=== PATIENT | female | born 1955 | race Caucasian/White ===

== ENCOUNTER 2016-05-08 13:29 | Inpatient (IN) | payer OTHER ==
[~2016-05-08] VITALS: Ht 154.9 cm; Wt 74.8 kg
[~2016-05-08 13:29] MED LIST: ALPRAZOLAM2 MG PO; ASPIRIN EC81 M1 PO; BACTRIM DS TAB1 EACH PO; CIPRO 500MG TA500 MG PO; CRESTOR10 M1 PO; FISH OIL CONCEN1 SGL PO; HUMALOG100 U/ML SC; KEFLEX500 MG PO; LEVEMIR100 U/ML SC; MACRODANTIN100 MG PO; METHADONE HYDRO10 MG PO; MULTI-DAY VITA1 EACH PO; NOVOLOG FL100 UNIT/1 SC; OXYCODONE HCL30 MG PO; OXYCODONE HYDRO30 MG PO; PERCOCET 325 MG1 TA2 PO; ROBITUSSIN W/CO10 ML PO; SPIRIVA 18 MCG18 MCG INH; SYNTHROID25 MCG PO; TORADOL10 MG PO; TRIAMCINOLONE 0.1 GM TOP; TUDORZA PR400 MCG/Ac INH; VENTOLIN H0.09 MG/Ac INH; VICTOZA 3-0.6 MG/0.1 SC; VIIBRYD20 MG PO; XANAX 0.5MG TA0.5 MG PO
--- NOTE | 2016-05-08 13:36 | NUR ---
PT TO ED WITH DAUGHTER FOR C/O SOB AND COUGH X 3-4 DAYS, PT SENT TO ED BY DR DELGADILLO FOR ? ADMISSION FOR PNA. PT STATES PRODUCTIVE COUGH WITH GREEN SPUTUM. AFEBRILE NOW. PT IS ON 4LNC. PT ALSO ASKING FOR PAIN MANAGEMENT CONSULT.
--- NOTE | 2016-05-08 13:46 | ED DYSPNEA/ASTHMA COMPLAINT ---
History of Present Illness General Chief Complaint: Dyspnea (COPD, CHF, Other) Stated Complaint: SOB Source: patient, family, old records Exam Limitations: no limitations Vital Signs & Intake/Output Vital Signs & Intake/Output Vital Signs Date Time Temp Pulse Resp B/P Pulse O2 O2 Flow FiO2 Ox Delivery Rate 05/08 1805 97.5 97 18 119/69 94 Nasal 3.0L Cannula 05/08 1615 97.5 94 18 125/64 95 Nasal 3.0L Cannula 05/08 1411 97 Nasal 3.0L Cannula 05/08 1351 95 Nasal 3.0L Cannula 05/08 1333 97.1 111 20 107/72 95 Nasal 4.0L Cannula Allergies Coded Allergies: caramiphen (UNKNOWN 10/16/15) chlorpheniramine (UNKNOWN 10/16/15) codeine (UNKNOWN 10/16/15) erythromycin base (UNKNOWN 10/16/15) phenylpropanolamine (UNKNOWN 10/16/15) streptomycin (RASH 10/16/15) Reconcile Medications Albuterol Sulfate (Proair Hfa) 90 MCG HFA.AER.AD 2 PUF INH BID COPD (Reported ) Alprazolam 1 MG TABLET 1 TAB PO TID ANXIETY (Reported) Aspirin (Ecotrin*) 81 MG TABLET.DR 1 TAB PO DAILY HEART/BLOOD (Reported) Escitalopram Oxalate 10 MG TABLET 1 TAB PO DAILY MENTAL HEALTH (Reported) Insulin Aspart, Recombinant (Novolog Flexpen) 100 UNIT/ML INSULN.PEN DM ( Reported) Insulin Detemir (Levemir Flextouch) 100 UNIT/ML (3 ML) INSULN.PEN 80 UNITS SC BID DM (Reported) Levothyroxine Sodium (Synthroid) 25 MCG TABLET 1 TAB PO DAILY THYROID ( Reported) Linaclotide (Linzess) 290 MCG CAPSULE 1 CAP PO DAILY GI (Reported) Liraglutide (Victoza 3-Dung) 0.6 MG/0.1 ML (18 MG/3 ML) PEN.INJCTR 1.8 MG SC QAM DM (Reported) Methadone Hydrochloride (Methadone HCl) 10 MG TABLET 30 MG PO QAM CHRONIC PAIN (Reported) Methadone Hydrochloride (Methadone HCl) 10 MG TABLET 40 MG PO QPM CHRONIC PAIN (Reported) Multivitamin (Multi-Day Vitamins) 1 EACH TABLET 1 TAB PO DAILY SUPPLEMENT ( Reported) Oxycodone HCl 30 MG TABLET 1 TAB PO 4 TIMES/DAY CHRONIC PAIN (Reported) Rosuvastatin Calcium (Crestor) 10 MG TABLET 1 TAB PO DAILY CHOLESTEROL ( Reported) Sulfamethoxazole/Trimethoprim (Bactrim Ds Tablet) 1 EACH TABLET 1 TAB PO BID uti Triage Note: PT TO ED WITH DAUGHTER FOR C/O SOB AND COUGH X 3-4 DAYS, PT SENT TO ED BY DR DELGADILLO FOR ? ADMISSION FOR PNA. PT STATES PRODUCTIVE COUGH WITH GREEN SPUTUM. AFEBRILE NOW. PT IS ON 4LNC. PT ALSO ASKING FOR PAIN MANAGEMENT CONSULT. Triage Nurses Notes Reviewed? yes Onset: Abrupt Duration: day(s): (3-4), constant Timing: recent history Severity: moderate Activities at Onset: activity Prior Episodes/Possible Cause: frequent episodes Modifying Factors: Improves With: rest. Worsens With: movement. Associated Symptoms: cough, weakness HPI: 60 year old female wit history of COPD on 3l o2 baseline, depression, anxiety, diabetes, carcinoid tumor, and brain aneurysm presents emergency room sent in by her primary care physician with her daughter complaining of progressively worsening shortness of breath worse with exertion, cough productive of green sputum for the past 4 days. Patient has needed to go up to 4 L on her oxygen without improvement. She denies any chest pain fevers or chills she is not currently on any prednisone. She's been using her inhalers at home without improvement. She denies any leg swelling abdominal pain nausea vomiting or fever. She smokes intermittently she reports. There are no other modifying factors or associated symptoms. No hemoptysis (VINOD BAPTISTE,MICK) Past History Travel History Traveled to [place] past 21 day No Medical History Any Pertinent Medical History? see below for history Neurological: brain aneurysm sp clip steel and acrylic plate in skull EENT: NONE Cardiovascular: hyperlipidemia Respiratory: COPD, CARCINOID TUMOR sp partial right pneumectomy O2 3-4L Gastrointestinal: NONE Hepatic: NONE Renal: NONE Musculoskeletal: ruptured cervical disc Psychiatric: anxiety, depression Endocrine: diabetes Blood Disorders: NONE History of MRSA: No History of VRE: No History of CDIFF: No Tetanus Vaccine: 05/23/14 Surgical History Surgical History: non-contributory Psychosocial History Who do you live with Family Services at Home None What is your primary language Iraqi Tobacco Use: Current Not Daily ETOH Use: denies use Illicit Drug Use: denies illicit drug use Family History Family History, If Any: FATHER (SMALL CELL CANCER LUNGS ). . Hx Contributory? No (MICK MATOS) Review of Systems Review of Systems Constitutional: Reports: see HPI. All Other Systems: Reviewed and Negative Comments Review of systems: See HPI, All other systems negative. Constitutional, no chills no fever, no malaise HEENT: No visual changes no sore throat no congestion Cardiovascular: No chest pain , no palpitation , Skin, no jaundice no rashes, no change in skin Respiratory: dyspnea cough sputum, no hemoptysis GI: No nausea no vomiting, no diarrhea : No dysuria Muscle skeletal: No joint pain, no joint swelling, no back pain, no neck pain, Neurologic: No numbness no confusion, no headache Psych: No stress . Heme/endocrine: No bruising no bleeding Immunology: No lymphadenopathy, (MICK MATOS) Physical Exam Physical Exam General Appearance: well developed/nourished, alert, awake Respiratory: wheezing Comments: Well-developed well-nourished person in no acute distress HEENT: Normal EENT exam; PERRL, EOMI, no nystagmus. HEAD is atraumatic. moist mucous membranes. Neck: Supple, normal range of motion Back: Nontender, no CVA tenderness. Full range of motion Cardiovascular: Regular rate and rhythms no murmurs rubs Respiratory: Chest nontender.There were no bony deformities, no asymmetry. No respiratory distress. Wheezing bilaterally no rhonchi no rales Abdomen: Soft, nontender nondistended, no appreciable organomegaly. Normal bowel sounds. No rebound/guarding, No appreciable enlargement of the abdominal aorta, No ascites. Extremity: No edema, full range of motion of extremities Neuro: Alert oriented x3, motor sensory normal. There were no obvious focal neurologic abnormalities. Skin: No appreciable rash on exposed skin, skin is warm and dry. Psych: Mood and affect is normal, memory and judgment is normal. Core Measures ACS in differential dx? Yes Severe Sepsis Present: No Septic Shock Present: No (MICK MATOS) Progress Differential Diagnosis: asthma, AMI, bronchitis, costochondritis, CHF, COPD, musculoskeletal pain, pericarditis, pulmonary embolism, pneumonia, pneumothorax, unstable angina Plan of Care: Orders Procedure Date/time Status Consistent Carbohydrate 2 05/09 D Active Regular Diet 05/09 B Active Regular Diet 05/08 D Complete LOWER RESPIRATORY CULTURE 05/08 1811 Active TRC EVALUATION (GEN) 05/08 1801 Active OXYGEN SETUP (GEN) 05/08 1801 Active Pathway - chart 05/08 1801 Active House Staff 05/08 1801 Active Patient Data 05/08 1801 Active Code Status 05/08 1801 Active Intake & Output 05/08 1635 Active Patient Data 05/08 1607 Active Code Status 05/08 1557 Complete Admit to inpatient 05/08 1556 Active Add-on Test (ER Only) 05/08 1552 Active B-TYPE NATRIURETIC PEP (BNP) 05/08 1515 Complete EKG 05/08 1512 Active BLOOD CULTURE 05/08 1432 Active RAPID VIRAL INFLUENZA A 05/08 1354 Complete TROPONIN LEVEL 05/08 1354 Complete COMPREHENSIVE METABOLIC PANEL 05/08 1354 Complete CBC WITHOUT DIFFERENTIAL 05/08 1354 Complete VTE Mechanical Prophylaxis 05/08 UNK Active FingerStick- Glucose 05/08 UNK Active Current Medications Sig/Franky Start time Last Medication Dose Stop Time Status Admin Atorvastatin Calcium 10 MG 1700 05/09 1700 AC (Lipitor) Aspirin Buffered 81 MG DAILY 05/09 1000 AC (Ecotrin) Enoxaparin Sodium 40 MG DAILY 05/09 1000 AC (Lovenox) Escitalopram Oxalate 10 MG DAILY 05/09 1000 AC (Lexapro) Methadone HCl 30 MG QAM 05/09 1000 AC (Dolophine) Multivitamins 1 TAB DAILY 05/09 1000 AC Therapeutic (Theragran-M Vitamins Tabs) Insulin Aspart 0 TIDAC 05/09 0800 AC (NovoLOG) Levothyroxine Sodium 0.025 MG DAILY AC 05/09 0700 AC (Synthroid) Alprazolam 1 MG TID 05/08 2200 AC (Xanax) 05/15 2158 Insulin Detemir 80 UNITS BID 05/08 2199 AC (Levemir) Methadone HCl 40 MG QPM 05/08 2200 AC (Dolophine) Methylprednisolone 40 MG Q8 05/08 220 AC (Solumedrol) Oxycodone HCl 30 MG 4 TIMES/DAY 05/08 2199 AC (Roxicodone) Azithromycin 500 MG 1900 05/08 1900 AC (Zithromax) Dextrose/Water 250 ML (D5W) Albuterol Sulfate 3 ML Q4P PRN 05/08 1830 AC (Proventil) Ipratropium [place] 2.5 ML Q4 HRS NEEDED PRN 05/08 1830 AC (Atrovent) Acetaminophen 650 MG Q6P PRN 05/08 1800 AC (Tylenol) Laboratory Tests 05/08/16 1515: Anion Gap 15, Estimated GFR > 60, BUN/Creatinine Ratio 28.0 H, Glucose 153 H, Calcium 9.2, Total Bilirubin 0.5, AST 49 H, ALT 56 H, Alkaline Phosphatase 146 H, Troponin I < 0.01, Pue-C-Victsueckic Pept 63.8, Total Protein 8.1, Albumin 4.3, Globulin 3.8, Albumin/Globulin Ratio 1.1 05/08/16 1430: CBC w Diff NO MAN DIFF REQ, RBC 4.68, MCV 90.4, MCH 30.3, RDW 14.4, MPV 9.6, Gran % 59.2, Lymphocytes % 33.5, Monocytes % 6.1, Eosinophils % 0.7, Basophils % 0.5, Absolute Granulocytes 5.2, Absolute Lymphocytes 3.0, Absolute Monocytes 0.5 , Absolute Eosinophils 0.1, Absolute Basophils 0, PUBS MCHC 33.5 Microbiology 05/08 1811 LOWER RESP: Respiratory Culture - ORD 05/08 181 LOWER RESP: Gram Stain - ORD 05/08 1515 BLOOD: Blood Culture - RECD 05/08 1455 BLOOD: Blood Culture - RECD Labs ordered old records reviewed patient medicated with Solu-Medrol Rocephin DuoNeb ordered Patient reports mild improvement in her symptoms upon ambulating on 3 L her baseline patient's oxygen saturation dropped from 97% at rest to 88-89% patient became notably dyspneic, declining repeat DuoNeb. Discussed with her plan of care as well as all of her lab results and x-ray findings and need for admission which she is in agreement with Case discussed with Dr. VALENTIN who evaluted the pt and agrees [facility] plan d/w dr murphy will admit (VINOD BAPTISTE,MICK) Diagnostic Imaging: Viewed by Me: Radiology Read. Discussed w/RAD: Radiology Read. Radiology Impression: PATIENT: MERCEDEZ [place] PRESENT AGE: 60 PATIENT ACCOUNT NO: [id number] : 54 LOCATION: [facility] ORDERING PHYSICIAN: MICK BAPTISTE SERVICE DATE: 05/08/16 EXAM TYPE: RAD - XRY- PORTABLE CHEST XRAY EXAMINATION: XR PORTABLE CHEST CLINICAL INFORMATION: Cough and pneumonia. COMPARISON: 10/16/2015. TECHNIQUE: Portable AP view of the chest was obtained. FINDINGS: Once again seen are postsurgical changes of the right hemithorax with an elevated hemidiaphragm and rib deformity. Heart size is normal and there is no evidence of CHF. No infiltrates, effusions or lung masses are seen. There has been no interval change since the previous study IMPRESSION: No acute intrathoracic disease. DICTATED BY: MYAH BALDERAS MD DATE/TIME DICTATED:05/08/161426 INVESTIGATIONS CONSULTANT:VIVIANE DATE/TIME TRANSCRIBED:1426 CONFIDENTIAL, DO NOT COPY WITHOUT APPROPRIATE AUTHORIZATION. < Electronically signed in Other Vendor System> SIGNED BY: MYAH BALDERAS MD 05/08/16 1436 Initial ED EKG: normal sinus at 70, no acute ST segment changes normal axis Prior EKG: unchanged (01/2016) Rhythm Strip: normal sinus rhythm (MICK MATOS) Departure Departure Time of Disposition: 1557 Disposition: STILL A PATIENT Condition: Stable Clinical Impression Primary Impression: COPD exacerbation Referrals: RASHEED DELGADILLO MD (PCP/Family) Departure Forms: Customer Survey General Discharge Information Admission Note Spoke With: BHANU MURPHY MD Documentation of Exam: Documentation of any treatments & extenuating circumstances including Concerns Regarding Discharge (functional status, medication knowledge or non-compliance, living conditions, etc.) that warrant an admission rather than observation: Patient will require IV antibiotics IV steroids pulmonology and pain management consult premature discharge would BE medically harmful given her oxygen saturations dropped into the 80s on 3 L with ambulation (MICK MATOS) PA/COLD ROLL OPERATOR Co-Sign Statement Statement: ED Attending supervision documentation- [x] I saw and evaluated the patient. I have also reviewed all the pertinent lab results and diagnostic results. I agree with the findings and the plan of care as documented in the PA's/COLD ROLL OPERATOR's documentation. [] I have reviewed the ED Record and agree with the PA's/COLD ROLL OPERATOR's documentation. [] Additions or exceptions (if any) to the PAs/COLD ROLL OPERATOR's note and plan are summarized below: [] (REINALDO VALENTIN DO) Critical Care Note Critical Care Note Critical Care Time: non-applicable (VINOD BAPTISTEMICK)
--- NOTE | 2016-05-08 13:51 | NUR ---
PT TO ROOM16 BY WHEELCHAIR, CHANGED INTO HOSPITAL GOWN, PLACED ON TRANSCRIPTION TYPIST, PLACED ON O2 3L NC O2SAT 97% EMILE BROCK AT BEDSIDE FOR PT EVAL.
--- NOTE | 2016-05-08 14:09 | NUR ---
RESP AT BEDSIDE FOR DUONEB.
--- NOTE | 2016-05-08 14:36 | RADIOLOGY REPORT ---
EXAMINATION: XR PORTABLE CHEST CLINICAL INFORMATION: Cough and pneumonia. COMPARISON: 10/16/2015. TECHNIQUE: Portable AP view of the chest was obtained. FINDINGS: Once again seen are postsurgical changes of the right hemithorax with an elevated hemidiaphragm and rib deformity. Heart size is normal and there is no evidence of CHF. No infiltrates, effusions or lung masses are seen. There has been no interval change since the previous study IMPRESSION: No acute intrathoracic disease.
--- NOTE | 2016-05-08 14:38 | NUR ---
IV EST, PT MEIDDCATED WITH SOLUMEDROL PER EMAR. BLOOD DRAWN AND SENT TO LAB-SST,LAV,BL[facility].
[2016-05-08 14:39] LABS: ABSOLUTE BASOPHIL COUNT 0 /CUMM (0.0-0.2); ABSOLUTE EOSINOPHIL COUNT 0.1 /CUMM (0.0-0.7); ABSOLUTE GRANULOCYTE CT 5.2 /CUMM (1.4-6.5); ABSOLUTE MONOCYTE COUNT 0.5 /CUMM (0.10-0.60); BASOPHIL % 0.5 % (0.0-2.0); EOSINOPHIL % 0.7 % (0-5); GRANULOCYTE % 59.2 % (42.2-75.2); HEMATOCRIT 42.3 % (37-47); MEAN CORPUSCULAR HGB 30.3 PG (27.0-31.0); MEAN CORPUSCULAR HGB CONC 33.5 G/DL (33.0-37.0); MEAN CORPUSCULAR VOLUME 90.4 FL (81.0-99.0); MEAN PLATELET VOLUME 9.6 FL (7.4-10.4); RBC DISTRIBUTION WIDTH 14.4 % (11.5-14.5); RED BLOOD CELL CT 4.68 /CUMM (4.20-5.40); WHITE BLOOD CELL COUNT 8.9 /CUMM (4.8-10.8)
--- NOTE | 2016-05-08 14:49 | NUR ---
FLU SWAB OBTAINED AND SENT TO LAB.
--- NOTE | 2016-05-08 15:01 | NUR ---
MIKE FROM LAB CALLED NEED REDRAW OF SST.
--- NOTE | 2016-05-08 15:05 | NUR ---
REDRAwn on sst
--- NOTE | 2016-05-08 15:14 | NUR ---
PT BLOOD SENT TO THE LAB SST REDRAWN
[2016-05-08] MEDS ORDERED: PROAIR HFA8.5 GM INH (15:40)
--- NOTE | 2016-05-08 15:40 | NUR ---
PT AMBULATED ON O2 3L NC WITH O2SAT 89%, HR 112. EMILE BROCK MADE AWARE.
[2016-05-08] MEDS ORDERED: ALPRAZOLAM1 M2 PO (15:41)
[2016-05-08] MEDS ORDERED: METHADONE HCL10 M1 PO ×2 (15:43→15:44)
[2016-05-08] MEDS ORDERED: LEVEMIR FL100 UNIT/1 SC (15:43)
[2016-05-08] MEDS ORDERED: OXYCODONE HCL30 M1 PO (15:44)
[2016-05-08] MEDS ORDERED: ESCITALOPRAM OX10 MG PO (15:45)
[2016-05-08] MEDS ORDERED: LINZESS290 MC1 PO (15:45)
--- NOTE | 2016-05-08 16:17 | NUR ---
PT OFFERING NO COMPLAINTS AT THIS TIME.VSS. FOOD TRAY ORDERED.
--- NOTE | 2016-05-08 17:46 | NUR ---
PT HAS BED ASSIGNMENT 235-1
--- NOTE | 2016-05-08 17:47 | NUR ---
FOOD TRAY PROVIDED TO PT.
--- NOTE | 2016-05-08 18:07 | History & Physical ---
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 Patient also reports chest congestion, wheezing and mild nausea. He denies fever, chills, chest pain or discomfort, vomiting, abdominal pain, any change in bowel or urinary habits, leg swelling, sick contacts around her. She lives with her daughter and her boyfriend. She has poor mobility because of back pain. She has a long smoking history. Has been smoking for last 27 years. Trying to quit right now. Still smokes 2 cigarettes per week. Used to smoke one and half pack per day. Denies drinking alcohol or use of illicit drugs. Allergies/Medications Allergies: Coded Allergies: caramiphen (UNKNOWN 10/16/15) chlorpheniramine (UNKNOWN 10/16/15) codeine (UNKNOWN 10/16/15) erythromycin base (UNKNOWN 10/16/15) phenylpropanolamine (UNKNOWN 10/16/15) streptomycin (RASH 10/16/15) Home Med list Albuterol Sulfate (Proair Hfa) 90 MCG HFA.AER.AD 2 PUF INH BID COPD (Reported ) Alprazolam 1 MG TABLET 1 TAB PO TID ANXIETY (Reported) Aspirin (Ecotrin*) 81 MG TABLET.DR 1 TAB PO DAILY HEART/BLOOD (Reported) Escitalopram Oxalate 10 MG TABLET 1 TAB PO DAILY MENTAL HEALTH (Reported) Insulin Aspart, Recombinant (Novolog Flexpen) 100 UNIT/ML INSULN.PEN DM ( Reported) Insulin Detemir (Levemir Flextouch) 100 UNIT/ML (3 ML) INSULN.PEN 80 UNITS SC BID DM (Reported) Levothyroxine Sodium (Synthroid) 25 MCG TABLET 1 TAB PO DAILY THYROID ( Reported) Linaclotide (Linzess) 290 MCG CAPSULE 1 CAP PO DAILY GI (Reported) Liraglutide (Victoza 3-Dung) 0.6 MG/0.1 ML (18 MG/3 ML) PEN.INJCTR 1.8 MG SC QAM DM (Reported) Methadone Hydrochloride (Methadone HCl) 10 MG TABLET 30 MG PO QAM CHRONIC PAIN (Reported) Methadone Hydrochloride (Methadone HCl) 10 MG TABLET 40 MG PO QPM CHRONIC PAIN (Reported) Multivitamin (Multi-Day Vitamins) 1 EACH TABLET 1 TAB PO DAILY SUPPLEMENT ( Reported) Oxycodone HCl 30 MG TABLET 1 TAB PO 4 TIMES/DAY CHRONIC PAIN (Reported) Rosuvastatin Calcium (Crestor) 10 MG TABLET 1 TAB PO DAILY CHOLESTEROL ( Reported) Sulfamethoxazole/Trimethoprim (Bactrim Ds Tablet) 1 EACH TABLET 1 TAB PO BID uti Past History Travel History Traveled to [place] past 21 day No Medical History Neurological: brain aneurysm sp clip steel and acrylic plate in skull EENT: NONE Cardiovascular: hyperlipidemia Respiratory: COPD, CARCINOID TUMOR sp partial right pneumectomy O2 3-4L Gastrointestinal: NONE Hepatic: NONE Renal: NONE Musculoskeletal: ruptured cervical disc Psychiatric: anxiety, depression Endocrine: diabetes Blood Disorders: NONE History of MRSA: No History of VRE: No History of CDIFF: No Tetanus Vaccine: 05/23/14 Surgical History Surgical History: non-contributory Past Family/Social History Family History Relations & Conditions if any FATHER (SMALL CELL CANCER LUNGS ). . Psychosocial History Services at Home: None ETOH Use: denies use Illicit Drug Use: denies illicit drug use Review of Systems Review of Systems Constitutional: Reports: see HPI. Exam & Diagnostic Data Last 24 Hrs of Vital Signs/I&O Vital Signs Date Time Temp Pulse Resp B/P Pulse O2 O2 Flow FiO2 Ox Delivery Rate 05/08 1805 97.5 97 18 119/69 94 Nasal 3.0L Cannula 05/08 1615 97.5 94 18 125/64 95 Nasal 3.0L Cannula 05/08 1411 97 Nasal 3.0L Cannula 05/08 1351 95 Nasal 3.0L Cannula 05/08 1333 97.1 111 20 107/72 95 Nasal 4.0L Cannula Intake & Output 05/08 1600 05/08 0800 05/08 0000 Intake Total Output Total Balance Patient 165 lb Weight Physical Exam General Appearance Alert, Oriented X3, Cooperative, No Acute Distress Skin 2 SMALL SCARS ON THE LEFT SIDE OF HER BACK IN 1 BIG SCAR ON RIGHT SIDE OF HER BACK Neck Supple, No JVD, HORIZONTAL SCAR ON HER NECK Cardiovascular TACHYCARDIA Lungs Clear to Auscultation, DECREASED AIR ENTRY ON RIGHT SIDE Abdomen Normal Bowel Sounds, Soft, No Tenderness Neurological Normal Speech, Strength at 5/5 X4 Ext, Sensation Intact, Cranial Nerves 3-12 NL Extremities No Edema Last 24 Hrs of Labs/Jaspreet: Laboratory Tests 05/08/16 1515: Anion Gap 15, Estimated GFR > 60, BUN/Creatinine Ratio 28.0 H, Glucose 153 H, Calcium 9.2, Total Bilirubin 0.5, AST 49 H, ALT 56 H, Alkaline Phosphatase 146 H, Troponin I < 0.01, Tfx-Q-Ctyhmsoaixx Pept 63.8, Total Protein 8.1, Albumin 4.3, Globulin 3.8, Albumin/Globulin Ratio 1.1 05/08/16 1430: CBC w Diff NO MAN DIFF REQ, RBC 4.68, MCV 90.4, MCH 30.3, RDW 14.4, MPV 9.6, Gran % 59.2, Lymphocytes % 33.5, Monocytes % 6.1, Eosinophils % 0.7, Basophils % 0.5, Absolute Granulocytes 5.2, Absolute Lymphocytes 3.0, Absolute Monocytes 0.5 , Absolute Eosinophils 0.1, Absolute Basophils 0, PUBS MCHC 33.5 Microbiology 05/08 1811 LOWER RESP: Respiratory Culture - ORD 05/08 181 LOWER RESP: Gram Stain - ORD 05/08 1515 BLOOD: Blood Culture - RECD 05/08 1455 BLOOD: Blood Culture - RECD Diagnostic Data EKG Results Normal sinus rhythm with heart rate [address]-T wave changes QTc interval 469 CXR Results Postsurgical changes. 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 Acute on chronic hypoxic respiratory failure secondary to COPD exacerbation. Patient desaturated up to 88-89% on ambulation while on 3 L 2. History of diabetes 3. History of hypothyroidism 4. History of chronic pain syndrome. Patient is on oxycodone and methadone. 5. History of kidney stones and UTI. Patient is on Bactrim for last 7-8 months 6. Transaminitis with elevated alkaline phosphatase. Most likely secondary to side effects of pain medications. Could be due to NAFLD 7. History of hypercholesterolemia 8. History of depression/anxiety 9. History of kidney stones and UTI. Patient is on Bactrim for last 7-8 months Plan Vitals every shift. Continue TRC nebs. Continue supplemental oxygen and keep oxygen saturation more than 92%. We will continue IV steroids. Will start patient on IV azithromycin. Blood cultures and sputum cultures. We will continue on her home medications including pain medications and Bactrim. Accu- Cheks before each meal and at bedtime. Monitor LFTs. Subcutaneous Lovenox for DVT prophylaxis. Pain management pathway. Consistent Carbohydrate diet. Full code. Outpatient referral to pain clinic after discharge for pain management. As Ranked By This Provider Problem List: 1. COPD exacerbation Core Measures/Miscellaneous Acute Coronary Syndrome ACS Diagnosis: No Cerebrovascular Accident CVA/TIA Diagnosis: No Congestive Heart Failure CHF Diagnosis: No Venous Thromboembolism VTE Risk Factors: Acute medical illness, Age > 40 VTE Prophylaxis Ordered Inpt: [facility] d/t: No contraindications No VTE Pharm Prophylaxis d/t: No contraindications VTE Diagnosis: No VTE Type: NONE VTE Confirmed by (Test): NONE Severe Sepsis Severe Sepsis Present: No Septic Shock Septic Shock Present: No Miscellaneous Documentation Attending Case Discussed With: BHANU MURPHY MD Primary Care Physician: RASHEED DELGADILLO MD Patient sees these Specialists Heri Thakur MD Level of Patient Care: General Medicine BHANU MURPHY MD 05/09/16 1234: Attending MD Review Statement Attending Statement Attending MD Statement: examined this patient, discuss w/resident/PA/SOLAR PROJECT MANAGER, agreed w/resident/PA/SOLAR PROJECT MANAGER, reviewed EMR data (avail) Attending Assessment/Plan: 60F PMH COPD on 3L home oxygen here with persistent worsening SOB not being helped by home inhalers, wheezing on exam, will be treated for COPD exacerbation with Solumedrol and nebulizer treatments.
--- NOTE | 2016-05-08 19:43 | NUR ---
AWAITING CALL FROM FLOOR RN FOR REPORT. ZITHROMYCIN IV INFUSING AT 250ML/HR. FINGER STICK 370. MOD PAGED. NOVOLG 8 UNTIS (SLIDING SCALE) SC ADMINISTERED PER MOD ORDER. VITAL SIGNS STABLE.
--- NOTE | 2016-05-08 20:07 | NUR ---
REPORT CALLED. DISTRIBUTION (LEFT MESSAGE ON ANSWERING MACHINE)
[2016-05-08 21:35] VITALS: BP 104/64
--- NOTE | 2016-05-08 23:00 | NUR ---
PT RECEIVED FROM ER AROUND 2100. A/O X2. CONFUSED AT TIMES. VSS ON 3L O2 NC. PT ON METHADONE FOR BACK PAIN. ALPS IN PLACE. BEDALARM INITIATED. SKIN INT. TRACE EDEMA TO SLICK FEET NOTED. BLE ELEVATED. SAFETY MAINTAINED. WILL MONITOR.
[2016-05-09 05:36] VITALS: BP 110/60
--- NOTE | 2016-05-09 07:59 | PN- Housestaff ---
CAREY ORTIZ 05/09/16 0759: Subjective Follow-up For: Acute on chronic hypoxic respiratory failure Subjective: The patient comfortable this morning. Did not have any complaints. Vitals remain stable overnight. remained afebrile. Stated that she takes methadone, which is prescribed by her primary care provider. Reached out to Dr. Sanches to confirm the dose. Await reply. Review of Systems Constitutional: Reports: see HPI. Objective Last 24 Hrs of Vital Signs/I&O Vital Signs Date Time Temp Pulse Resp B/P Pulse O2 O2 Flow FiO2 Ox Delivery Rate 05/09 0536 97.7 104 20 110/60 94 Nasal 3.0L Cannula 05/08 2200 Nasal 3.0L Cannula 05/08 2135 97.5 101 20 104/64 93 05/08 1945 97.6 96 18 117/63 95 Nasal 3.0L Cannula 05/08 1805 97.5 97 18 119/69 94 Nasal 3.0L Cannula 05/08 1615 97.5 94 18 125/64 95 Nasal 3.0L Cannula 05/08 1411 97 Nasal 3.0L Cannula 05/08 1351 95 Nasal 3.0L Cannula 05/08 1333 97.1 111 20 107/72 95 Nasal 4.0L Cannula Intake & Output 05/09 0800 05/09 0000 05/08 1600 Intake Total 100 550 Output Total Balance 100 550 Intake, IV 200 Intake, Oral 100 350 Patient 165 lb 165 lb Weight Physical Exam General Appearance: No Acute Distress Other Physical Findings: General Exam: AAOx3, No acute distress, Skin: No rashes, no breakdown HEENT: PERRLA, EOMI Neck: Supple, No JVD No cervical lymphadenopathy CVS: Reg Rate, Normal S1,S2, No MGR Resp: Low air entry bilaterally, rhonchi/rales positive bilaterally., Abdomen: Soft, No tenderness, Normal Bowel Sounds Neuro: Normal Speech, Strength 5/5 b/l x 4 extremities, Sensation intact, CN III -XII NL, Reflexes 2+ Extremities: No cyanosis, No pedal edema Current Medications: Current Medications Sig/Franky Start time Last Medication Dose Route Stop Time Status Admin Acetaminophen 650 MG Q6P PRN 05/08 1800 AC PO Albuterol Sulfate 3 ML Q4P PRN 05/08 1830 AC INH Albuterol Sulfate 3 ML ONCE ONE 05/08 1400 DC 05/08 INH 05/08 1401 1411 Alprazolam 1 MG TID 05/08 2200 AC 05/08 PO 05/15 2159 2113 Aspirin Buffered 81 MG DAILY 05/09 1000 AC PO Atorvastatin Calcium 10 MG 1700 05/09 1700 AC PO Azithromycin 500 MG 1900 05/08 1900 AC 05/08 Dextrose/Water 250 ML IV 1938 Ceftriaxone Sodium 0 .STK-MED ONE 05/08 1435 DC .ROUTE Ceftriaxone Sodium 1,000 MG ONCE ONE 05/08 1400 DC 05/08 IV 05/08 1401 1515 Enoxaparin Sodium 40 MG DAILY 05/09 1000 AC SC Escitalopram Oxalate 10 MG DAILY 05/09 1000 AC PO Influenza Virus 0.5 ML 1000 05/09 1000 AC Vaccine IM 05/09 1001 Insulin Aspart 0 TIDAC 05/09 0800 DC 05/08 SC 1938 Insulin Aspart 6 UNITS ONCE ONE 05/08 2145 DC 05/08 SC 05/08 2146 2217 Insulin Aspart 0 TIDAC/HS 05/08 2115 AC SC Insulin Detemir 80 UNITS BID 05/08 2200 AC 05/08 SC 2118 Ipratropium [place] 2.5 ML Q4 HRS NEEDED PRN 05/08 1830 AC INH Ipratropium [place] 2.5 ML ONCE ONE 05/08 1400 DC 05/08 INH 05/08 1401 1411 Levothyroxine Sodium 0.025 MG DAILY AC 05/09 0700 AC 05/09 PO 0604 Methadone HCl 30 MG QAM 05/09 1000 AC PO Methadone HCl 40 MG QPM 05/08 2200 AC 05/08 PO 2114 Methylprednisolone 40 MG Q8 05/08 2200 AC 05/09 IV 0604 Methylprednisolone 0 .STK-MED ONE 05/08 1435 DC .ROUTE Methylprednisolone 125 MG ONCE ONE 05/08 1400 DC 05/08 IV 05/08 1401 1438 Multivitamins 1 TAB DAILY 05/09 1000 AC Therapeutic PO Oxycodone HCl 30 MG 4 TIMES/DAY 05/08 2200 AC 05/08 PO 2219 Trimethoprim/ 1 TAB BID 05/08 2200 AC 05/08 Sulfamethoxazole PO 2323 Last 24 Hrs of Lab/Jaspreet Results Last 24 Hrs of Labs/Mics: Laboratory Tests 05/09/16 0620: Sodium Pending, Potassium Pending, Chloride Pending, Carbon Dioxide Pending, Anion Gap Pending, BUN Pending, Creatinine Pending, BUN/Creatinine Ratio Pending , Total Bilirubin Pending, Direct Bilirubin Pending, AST Pending, ALT Pending, Alkaline Phosphatase Pending, Total Protein Pending, Albumin Pending 05/08/16 1515: Anion Gap 15, Estimated GFR > 60, BUN/Creatinine Ratio 28.0 H, Glucose 153 H, Calcium 9.2, Total Bilirubin 0.5, AST 49 H, ALT 56 H, Alkaline Phosphatase 146 H, Troponin I < 0.01, Rou-X-Atgbanjegqo Pept 63.8, Total Protein 8.1, Albumin 4.3, Globulin 3.8, Albumin/Globulin Ratio 1.1 05/08/16 1430: CBC w Diff NO MAN DIFF REQ, RBC 4.68, MCV 90.4, MCH 30.3, RDW 14.4, MPV 9.6, Gran % 59.2, Lymphocytes % 33.5, Monocytes % 6.1, Eosinophils % 0.7, Basophils % 0.5, Absolute Granulocytes 5.2, Absolute Lymphocytes 3.0, Absolute Monocytes 0.5 , Absolute Eosinophils 0.1, Absolute Basophils 0, PUBS MCHC 33.5 Microbiology 05/08 181 LOWER RESP: Respiratory Culture - COLB 05/08 181 LOWER RESP: Gram Stain - COLB 05/08 1515 BLOOD: Blood Culture - RECD 05/08 1455 BLOOD: Blood Culture - RECD Assessment/Plan Assessment: She is an older lady with a history of diabetes, lung carcinoid tumor status post resection, COPD (3.5 L oxygen) is being evaluated for shortness of breath, cough. [id number] smoking history. At the time of admission, vitals-temperature 97.1, pulse rate 111, respiration 20, blood pressure 107/72, pulse ox 95% nasal cannula 4 L. Lab findings indicated WBC 8.9, hemoglobin 14.2, platelets were not checked. Electrolytes- sodium 138, potassium 3.8, bicarbonate 27, normal renal function-BUN 14, serum creatinine 0.5. Cure function tests-history 49, he has difficulty 6, alkaline phosphatase 146. Radiological findings-chest x-ray revealed no acute abnormalities. Blood cultures 2-negative so far. Differential diagnosis: #1 COPD exacerbation (acute hypoxic respiratory failure) . Below is the problem list and plan: #1 shortness of breath-acute hypoxic respiratory failure. As per the notes, the patient had oxygen saturation-88% on 3 L. Continue total respiratory care- nebulization. Continue IV azithromycin. IV Solu-Medrol has been changed from 40 mg every 8 to every 12. The respiratory cultures recently. #2 diabetes-HbA1c pending. Blood sugars inadequately controlled, with 80 units of Levemir. Consider increasing the dose of Levemir at this time. Continue to monitor blood glucose closely. A separate sliding scale needs to be written along with a bedtime scale for regular insulin. Continue to monitor blood glucose for the next 24 hours, and reevaluate in the a.m. #3 pain management-currently on methadone 30 mg every morning and 40 mg every afternoon. Also on oxycodone 30 mg 4 times a day, which is counterproductive. Reached out to the primary care physician for confirmation of the diagnosis. As per the family, oxycodone has been made when necessary. #4 unit tract infection-she takes prophylactic antibiotics-Bactrim. Need to review records from primary care physician. #5 DVT prophylaxis-Lovenox. Problem List: 1. COPD exacerbation 2. Bronchitis Pain Ratin Pain Location: Back Pain Goal: Pain 4 or less Pain Plan: Oxycodone Tomorrow's Labs & Rationales: Basic electrode lead panel-the patient was hyponatremic, and need to monitor closely. EMMA NUGENT,[facility] 05/09/16 1154: Attending MD Review Statement Attending Statement Attending MD Statement: examined this patient, discuss w/resident/PA/OFFICE MACHINES SALES REPRESENTATIVE, agreed w/resident/PA/OFFICE MACHINES SALES REPRESENTATIVE, reviewed EMR data (avail), discussed with nursing, discussed with case mgmt, reviewed images, amended to note Attending Assessment/Plan: Patient seen and examined, claims that she's feeling very tired. Breathing has improved some. Vital Signs Date Time Temp Pulse Resp B/P Pulse O2 O2 Flow FiO2 Ox Delivery Rate 05/09 1146 95 Nasal 3.0L Cannula 05/09 0536 97.7 104 20 110/60 94 Nasal 3.0L Cannula 05/080 Nasal 3.0L Cannula 05/085 97.5 101 20 104/64 93 05/08 1945 97.6 96 18 117/63 95 Nasal 3.0L Cannula 05/08 1805 97.5 97 18 119/69 94 Nasal 3.0L Cannula 05/08 1615 97.5 94 18 125/64 95 Nasal 3.0L Cannula 05/08 1411 97 Nasal 3.0L Cannula 05/08 1351 95 Nasal 3.0L Cannula 05/08 1333 97.1 111 20 107/72 95 Nasal 4.0L Cannula on exam; aox3, nad. cv; s1,s2, rrr. resp; clear but decreased breath sounds overall. abd; soft, nt, bs+ ext; no edema Laboratory Tests 05/09 05/08 05/08 0620 1515 1430 Chemistry Sodium (137 - 145 mmol/L) 135 L 138 Potassium (3.5 - 5.1 mmol/L) 4.6 3.8 Chloride (98 - 107 mmol/L) 95 L 96 L Carbon Dioxide (22 - 30 mmol/L) 30 27 Anion Gap (5 - 16) 11 15 BUN (7 - 17 mg/dL) 14 14 Creatinine (0.5 - 1.0 mg/dL) 0.6 0.5 Estimated GFR (>60 ml/min) > 60 > 60 BUN/Creatinine Ratio (7 - 25 %) 23.3 28.0 H Glucose (65 - 99 mg/dL) 153 H Calcium (8.4 - 10.2 mg/dL) 9.2 Total Bilirubin (0.2 - 1.3 mg/dL) 0.4 0.5 Direct Bilirubin (< 0.4 mg/dL) 0.4 AST (14 - 36 U/L) 39 H 49 H ALT (9 - 52 U/L) 55 H 56 H Alkaline Phosphatase (<127 U/L) 126 146 H Troponin I (< 0.11 ng/ml) < 0.01 [id number]-Celhiqfwqvd Pept (<125 pg/mL) 63.8 Total Protein (6.3 - 8.2 g/dL) 7.3 8.1 Albumin (3.5 - 5.0 g/dL) 3.9 4.3 Globulin (1.9 - 4.2 gm/dL) 3.8 Albumin/Globulin Ratio (1.1 - 2.2 %) 1.1 Hematology CBC w Diff NO MAN DIFF REQ WBC (4.8 - 10.8 /CUMM) 8.9 RBC (4.20 - 5.40 /CUMM) 4.68 Hgb (12.0 - 16.0 G/DL) 14.2 Hct (37 - 47 %) 42.3 MCV (81.0 - 99.0 FL) 90.4 MCH (27.0 - 31.0 PG) 30.3 RDW (11.5 - 14.5 %) 14.4 Plt Count (/CUMM) MPV (7.4 - 10.4 FL) 9.6 Gran % (42.2 - 75.2 %) 59.2 Lymphocytes % (20.5 - 51.1 %) 33.5 Monocytes % (1.7 - 9.3 %) 6.1 Eosinophils % (0 - 5 %) 0.7 Basophils % (0.0 - 2.0 %) 0.5 Absolute Granulocytes (1.4 - 6.5 /CUMM) 5.2 Absolute Lymphocytes (1.2 - 3.4 /CUMM) 3.0 Absolute Monocytes (0.10 - 0.60 /CUMM) 0.5 Absolute Eosinophils (0.0 - 0.7 /CUMM) 0.1 Absolute Basophils (0.0 - 0.2 /CUMM) 0 PUBS MCHC (33.0 - 37.0 G/DL) 33.5 A/p: 60 y/o F with pmh sig for diabetes mellitus, ch resp failure, lung carcinoid tumor status post partial right pneumonectomy, COPD on 3 L of oxygen at home, 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 Patient is methadone dependent and asking for pain management referral. Improving, please decrease the steroids to twice a day dosing. Would continue the IV azithromycin and follow-up on cultures. Continue inhalers and TRC nebs. Patient will be given referral for the pain management. Continue all other current medications. Please ambulate patient with some assistance. DVT prophylaxis: Lovenox. If continues to improve, possible discharge tomorrow.
[2016-05-09 14:33] VITALS: BP 118/72
[2016-05-09 23:00] VITALS: BP 106/72
--- NOTE | 2016-05-10 05:51 | PN- Housestaff ---
CAREY ORTIZ 05/10/16 0550: Subjective Follow-up For: - Diabetes - COPD Subjective: She was comfortable this morning. Breathing improved. Vitals were stable. He remained afebrile. Review of Systems Constitutional: Reports: see HPI. Objective Last 24 Hrs of Vital Signs/I&O Vital Signs Date Time Temp Pulse Resp B/P Pulse O2 O2 Flow FiO2 Ox Delivery Rate 05/10 0000 Nasal 3.0L Cannula 05/09 2308 91 Nasal 3.0L Cannula 05/09 2300 97.8 90 20 106/72 86 Nasal 3.0L Cannula 05/09 1835 99 Nasal 3.0L Cannula 05/09 1433 99.0 112 19 118/72 91 05/09 1151 Nasal 3.0L Cannula 05/09 1146 95 Nasal 3.0L Cannula 05/09 0800 Nasal 3.0L Cannula Intake & Output 05/10 0800 05/10 0000 05/09 1600 Intake Total 250 800 Output Total 200 2 Balance 50 798 Intake, Oral 250 800 Output, Urine 200 2 Physical Exam General Appearance: No Acute Distress Other Physical Findings: General Exam: AAOx3, No acute distress, Skin: No rashes, no breakdown HEENT: PERRLA, EOMI Neck: Supple, No JVD No cervical lymphadenopathy CVS: Reg Rate, Normal S1,S2, No MGR Resp:Decreased air entry, ronchi/rales b/l Abdomen: Soft, No tenderness, Normal Bowel Sounds Neuro: Normal Speech, Strength 5/5 b/l x 4 extremities, Sensation intact, CN III -XII NL, Reflexes 2+ Extremities: No cyanosis, pedal edema Current Medications: Current Medications Sig/Franky Start time Last Medication Dose Route Stop Time Status Admin Acetaminophen 650 MG Q6P PRN 05/08 1800 AC PO Albuterol Sulfate 3 ML BID 05/09 220 AC 05/09 INH 1835 Albuterol Sulfate 3 ML Q4P PRN 05/08 183 DC INH Alprazolam 1 MG TID 05/08 2199 AC 05/09 PO 05/15 2158 2140 Aspirin Buffered 81 MG DAILY 05/09 1000 AC 05/09 PO 1141 Atorvastatin Calcium 10 MG 1700 05/09 1700 DC PO Atorvastatin Calcium 10 MG 1700 05/09 1700 AC 05/09 PO 1707 Azithromycin 500 MG 19005/08 1900 AC 05/09 Dextrose/Water 250 ML IV 1708 Enoxaparin Sodium 40 MG DAILY 05/09 1000 AC 05/09 SC 1019 Escitalopram Oxalate 10 MG DAILY 05/09 1000 AC 05/09 PO 1141 Influenza Virus 0.5 ML 1000 05/09 1000 DC Vaccine IM 05/09 1001 Insulin Aspart 0 TIDAC 05/09 0800 DC 05/08 SC 1938 Insulin Aspart 0 TIDAC/HS 05/08 2115 AC 05/09 SC 2141 Insulin Detemir 85 UNITS BID 05/09 2200 AC 05/09 SC 2142 Insulin Detemir 80 UNITS BID 05/08 2200 DC 05/09 SC 0853 Ipratropium [place] 2.5 ML BID 05/09 2200 AC 05/09 INH 1137 Ipratropium [place] 2.5 ML Q4 HRS NEEDED PRN 05/08 1830 DC INH Levothyroxine Sodium 0.025 MG DAILY AC 05/09 0700 AC 05/09 PO 0604 Methadone HCl 30 MG QAM 05/09 1000 AC 05/09 PO 1017 Methadone HCl 40 MG QPM 05/08 2200 AC 05/09 PO 2141 Methylprednisolone 40 MG BID 05/09 2200 AC 05/09 IV 2142 Methylprednisolone 40 MG Q8 05/08 2200 DC 05/09 IV 0604 Multivitamins 1 TAB DAILY 05/09 1000 AC 05/09 Therapeutic PO 1141 Oxycodone HCl 30 MG 4 TIMES/DAY PRN 05/09 1434 AC 05/09 PO 1727 Oxycodone HCl 30 MG 4 TIMES/DAY 05/08 2200 DC 05/09 PO 1017 Patient Medication 1 ED .STK-MED ONE 05/09 1409 PA Teaching ED 05/09 1410 Trimethoprim/ 1 TAB BID 05/08 2200 AC 05/09 Sulfamethoxazole PO 2140 Last 24 Hrs of Lab/Jaspreet Results Last 24 Hrs of Labs/Mics: Laboratory Tests 05/09/16 0620: Anion Gap 11, Estimated GFR > 60, BUN/Creatinine Ratio 23.3, Total Bilirubin 0.4 , Direct Bilirubin 0.4, AST 39 H, ALT 55 H, Alkaline Phosphatase 126, Total Protein 7.3, Albumin 3.9 Assessment/Plan Assessment: She is an older lady with a history of diabetes, lung carcinoid tumor status post resection, COPD (3.5 L oxygen) is being evaluated for shortness of breath, cough. [id number] smoking history. Differential diagnosis: #1 COPD exacerbation (acute hypoxic respiratory failure) . Below is the problem list and plan: #1 shortness of breath-acute hypoxic respiratory failure. As per the notes, the patient had oxygen saturation-88% on 3 L. Continue total respiratory care- nebulization. Continue IV azithromycin. IV Solu-Medrol has been changed from 40 mg every 8 to every 12, to by mouth prednisone. #2 diabetes-HbA1c pending. Blood sugars inadequately controlled, with 85 units of Levemir. Blood sugars 185, 185. He is to discharge the patient on insulin sliding scale (home dose), confirmed with the daughter. #3 pain management-currently on methadone 30 mg every morning and 40 mg every afternoon. Also on oxycodone 30 mg 4 times a day, which is counterproductive. Reached out to the primary care physician for confirmation of the diagnosis. Did not receive a call back from Dr. Bills. Given referral to see pain management clinic. As per the CT HUMAN SERVICE TECHNICIAN, she would still have adequate doses before she sees a pain case management specialist. Discussed in detail with the patient and the daughter. #4 unit tract infection-she takes prophylactic antibiotics-Bactrim. Unclear reason. Advised the patient and the daughter, to follow up with the urologist for duration of treatment with Bactrim. #5 DVT prophylaxis-Lovenox. Problem List: 1. COPD exacerbation Pain Ratin Pain Location: None Pain Goal: Pain 4 or less Pain Plan: Oxycodone Methadone Tomorrow's Labs & Rationales: No labs necessary. Patient to get discharged ANA CARTER MD 05/10/16 1145: Attending MD Review Statement Attending Statement Attending MD Statement: examined this patient, discuss w/resident/PA/COMPUTER HARDWARE DESIGNER, agreed w/resident/PA/COMPUTER HARDWARE DESIGNER, reviewed EMR data (avail), discussed with nursing, discussed with case mgmt, reviewed images, amended to note Attending Assessment/Plan: Patient seen and examined, overall feeling better in terms of her breathing. She wants refills on her methadone, oxycodone as well as Xanax. She wants a referral to a pain management clinic but wants us to give her those refills states she has an appointment. After checking the [facility] website we found that she was last prescribed all of the above medications on 04/19/2016 so she is not due for another 10 days. Patient was told that unfortunately we cannot prescribe her those medications because it's not over a month and methadone we cannot prescribe anyways because of the requirement for specific license. Steroids can be switched to oral. Her azithromycin can be switched to oral as well. She is home oxygen dependent. She is otherwise medically stable for discharge home today.
[2016-05-10 06:54] VITALS: BP 110/50
--- NOTE | 2016-05-10 08:43 | Patient Discharge Instructions ---
Discharge Instructions General Discharge Information You were seen/treated for: #1 COPD exacerbation Watch for these problems: #1 chest pain, shortness of breath Special Instructions: #1 please follow-up with your primary care provider within 1-2 weeks of discharge. #2 please follow up with pain management clinic (find referral) within 1-2 weeks of discharge. Please discuss with him about follow-up on oxycodone and methadone dosing and frequency. #3 please follow-up with your primary care provider about continuation of Bactrim for UTI. Acute Coronary Syndrome Inclusion Criteria At DC or during hospital stay patient has or had the following: ACS DIAGNOSIS No Discharge Core Measures Meds if any: Prescribed or Continued at Discharge Meds if any: NOT Prescribed or Continued at Discharge Congestive Heart Failure Inclusion Criteria At DC or during hospital stay patient has or had the following: CHF DIAGNOSIS No Discharge Core Measures Meds if any: Prescribed or Continued at Discharge Meds if any: NOT Prescribed or Continued at Discharge Cerebrovascular accident Inclusion Criteria At DC or during hospital stay patient has or had the following: CVA/TIA Diagnosis No Discharge Core Measures Meds if any: Prescribed or Continued at Discharge Meds if any: NOT Prescribed or Continued at Discharge Venous thromboembolism Inclusion Criteria VTE Diagnosis No VTE Type NONE VTE Confirmed by (Test) NONE Discharge Core Measures - Per Current guidelines, there needs to be overlap - treatment for the first 5 days of Warfarin therapy. - If discharged on Warfarin prior to 5 days of - overlap therapy, the patient will need to be - assessed for post discharge needs including - *Post discharge parental anticoagulation - *Warfarin and/or parental anticoagulation education - *Follow up date to check INR post discharge At least 5 days overlap therapy as Inpatient No Meds if any: Prescribed or Continued at Discharge Note: Overlap Therapy is Warfarin and Anticoagulant Meds if any: NOT Prescribed or Continued at Discharge
[2016-05-10] MEDS ORDERED: ZITHROMAX500 M2 PO (11:19)
[2016-05-10] MEDS ORDERED: PREDNISONE10 M2 PO (11:19)
[2016-05-10] MEDS ORDERED: BACTRIM DS TAB1 EACH PO (11:40)
[2016-05-10 14:24] VITALS: BP 22/60
--- NOTE | 2016-05-10 18:55 | Discharge Summary ---
Visit Information Visit Dates Admission Date: 05/08/16 Discharge Date: 05/10/16 Hospital Course Course Attending Physician: ANA CARTER MD Primary Care Physician: RASHEED DELGADILLO MD Hospital Course: She is an older lady with a history of diabetes, lung carcinoid tumor status post resection, COPD (3.5 L oxygen) is being evaluated for shortness of breath, cough. [id number] smoking history. At the time of admission, vitals-temperature 97.1, pulse rate 111, respiration 20, blood pressure 107/72, pulse ox 95% nasal cannula 4 L. Lab findings indicated WBC 8.9, hemoglobin 14.2, platelets were not checked(due to lab collection logistics EDTA vs heparinized tubes). Electrolytes-sodium 138, potassium 3.8, bicarbonate 27, normal renal function-BUN 14, serum creatinine 0.5. Liver function tests- alkaline phosphatase 146. BC x 2 negative. LRC couldnt be otained. Radiological findings-chest x-ray revealed no acute abnormalities. Blood cultures 2-negative so far. Differential diagnosis: #1 COPD exacerbation (acute hypoxic respiratory failure) . Below is the problem list and plan: #1 shortness of breath-acute hypoxic respiratory failure. As per the notes, the patient had oxygen saturation-88% on 3 L at the time of admssion. Pt was continue total respiratory care-nebulization and azithromycin. Also was given intravenous Solu-Medrol that was tapered to po prednisone. Remained on 3L w/ O2 sats > 92%. #2 diabetes-HbA1c 10.3. Blood sugars inadequately controlled, with 80 units of Levemir, and insulin sliding scale. Since the pt was being tapered on prednisone , and had other hypoglycemic agents such as Liraglutide, and insulin sliding scale(home dose-confirmed from the [facility]), she was discharged home to monitor closely. #3 pain management- was being done by methadone 30 mg every morning and 40 mg every afternoon. Also on oxycodone 30 mg 4 times a day, which was felt to be counterproductive. She was to find a new pain management phyician, as the pt did not have any PCP anymore who was prescribing the medications previously. #4 unit tract infection and h/o ESWL-Continued on prophylactic antibiotics- Bactrim. Since, there was response from Dr. Bills's office, after several attempts, it was deemded prudent to discharge the pt on Bactrim w/ a recommendation to follow up with the urologist. Discussed w/ the pt's daughter. #5 DVT prophylaxis-Lovenox. Allergies: Coded Allergies: caramiphen (UNKNOWN 10/16/15) chlorpheniramine (UNKNOWN 10/16/15) codeine (UNKNOWN 10/16/15) erythromycin base (UNKNOWN 10/16/15) phenylpropanolamine (UNKNOWN 10/16/15) streptomycin (RASH 10/16/15) Pertinent Lab Results: RAD - XRY-PORTABLE CHEST XRAY 05/08/16-1354 Once again seen are postsurgical changes of the right hemithorax with an elevated hemidiaphragm and rib deformity. Heart size is normal and there is no evidence of CHF. No infiltrates, effusions or lung masses are seen. There has been no interval change since the previous study IMPRESSION: No acute intrathoracic disease. Disposition Summary Disposition Principal Diagnosis: COPD Additional Diagnosis: Diabetes Discharge Disposition: home or self care Discharge Instructions General Discharge Information Code Status: Full Code Patient's Diet: heart healthy diet Patient's Activity: as tolerated. Follow-Up Instructions/Appts: #1 please follow-up with your primary care provider within 1-2 weeks of discharge. #2 please follow up with pain management clinic (find referral) within 1-2 weeks of discharge. Please discuss with him about follow-up on oxycodone and methadone dosing and frequency. #3 please follow-up with your primary care provider about continuation of Bactrim for UTI. Medications at Discharge Discharge Medications: Continue taking these medications: Rosuvastatin Calcium (Crestor) 10 MG TABLET 1 Tablet ORAL DAILY Comments: TAKEN 05/09 AT 5PM Liraglutide (Victoza 3-Dung) 0.6 MG/0.1 ML (18 MG/3 ML) PEN.INJCTR 1.8 Milligram Inject into fatty tissue Every Morning Comments: NOT GIVEN IN HOSPITAL Insulin Aspart, Recombinant (Novolog Flexpen) 100 UNIT/ML INSULN.PEN Unit Inject into fatty tissue 3 TIMES DAILY BEFORE MEALS Days = 30 Instructions: Please take Blood sugar Insulin 80-150mg/dl no insulin 151-200mg/dl 5 units 201-250mg/dl 10 units 251-300mg/dl 15 units 301-350mg/dl 20 units 351-400mg/dl 25 units > 400mg/dl 30 units. please call MD Comments: TAKEN 05/10 AT 0830 Levothyroxine Sodium (Synthroid) 25 MCG TABLET 1 Tablet ORAL DAILY BEFORE BREAKFAST Comments: TAKEN 05/10 AT 0700AM Aspirin (Ecotrin*) 81 MG TABLET.DR 1 Tablet ORAL DAILY Comments: TAKEN 05/10 AT 10AM Multivitamin (Multi-Day Vitamins) 1 EACH TABLET 1 Tablet ORAL DAILY Comments: TAKEN 05/10 AT 10AM Albuterol Sulfate (Proair Hfa) 90 MCG HFA.AER.AD 2 Puff Inhale through mouth TWICE DAILY Comments: PER PT Alprazolam (Alprazolam) 1 MG TABLET 1 Tablet ORAL THREE TIMES DAILY Qty = 90 Comments: TAKEN 05/10 AT 10AM Insulin Detemir (Levemir Flextouch) 100 UNIT/ML (3 ML) INSULN.PEN 80 Units Inject into fatty tissue TWICE DAILY Qty = 45 Comments: TAKEN 05/10 AT 0830 Methadone Hydrochloride (Methadone HCl) 10 MG TABLET 30 Milligram ORAL Every Morning Qty = 210 Comments: TAKEN 05/10 AT 10AM Methadone Hydrochloride (Methadone HCl) 10 MG TABLET 40 Milligram ORAL Every night Comments: TAKEN 05/09 AT 10PM Oxycodone HCl (Oxycodone HCl) 30 MG TABLET 1 Tablet ORAL 4 TIMES A DAY as needed for Severe pain 7-10 Comments: TAKEN 05/10 AT 0630AM Escitalopram Oxalate (Escitalopram Oxalate) 10 MG TABLET 1 Tablet ORAL DAILY Qty = 30 Comments: TAKEN 05/10 AT 10AM Linaclotide (Linzess) 290 MCG CAPSULE 1 Capsule ORAL DAILY Qty = 30 Comments: NOT GIVEN IN HOSPITAL Sulfamethoxazole/Trimethoprim (Bactrim Ds Tablet) 1 EACH TABLET 1 Tablet ORAL TWICE DAILY Qty = 20 Instructions: Please discuss with your urologist about continuation of this medication. This prescription has been renewed Copies To: ELIE NUGENT,RASHEED Samuel Attending MD Review Statement Documenting Attending: EMMA NUGENT,ANA 4 tabs(40mg) on 05/11,05/12 3 tabs(30mg) on 05/13,05/14 2 tabs(20mg) on 05/15,05/16 1 tab(10 mg) on 05/17,2/24 please stop on 05/18. Azithromycin (Zithromax) 500 MG TABLET 1 Tablet ORAL DAILY Qty = 3 No Refills Copies To: ELIE NUGENT,RASHEED Samuel Attending MD Review Statement Documenting Attending: ANA CARTER MD
== END 2016-05-10 15:15 | disposition home health service (06) | DRG 190 ==
LOC: ENRESERVDT → ENRESERVTM → ERH 13:29 → ERHI 15:56 → ENPENDDIS 15:56 → 2NA 15:56
PROVIDERS: Physician Assistant Medical; ADMIT Internal Medicine
DX: J44.1 Chronic obstructive pulmonary disease with (acute) exacerbation (principal); J96.21 Acute and chronic respiratory failure with hypoxia; F11.20 Opioid dependence, uncomplicated; N39.0 Urinary tract infection, site not specified; J20.9 Acute bronchitis, unspecified; Z85.110 Personal history of malignant carcinoid tumor of bronchus and lung; E11.9 Type 2 diabetes mellitus without complications; Z79.4 Long term (current) use of insulin
CPT/HCPCS: 2NASP; 6020; 82436; 87040; 87070; 87804; 87804-59; 93005; 93010; 96374; 96375; G0378; J0456; J0696; J1650; J2920; J2930; J7060; Q2036

== ENCOUNTER 2016-05-23 14:12 | Observation (INO) | payer OTHER ==
[~2016-05-23] VITALS: Ht 154.9 cm; Wt 74.4 kg
[~2016-05-23 14:12] MED LIST changes: +ALPRAZOLAM1 M2 PO; +ESCITALOPRAM OX10 MG PO; +LEVEMIR FL100 UNIT/1 SC; +LINZESS290 MC1 PO; +METHADONE HCL10 M1 PO; +OXYCODONE HCL30 M1 PO; +PREDNISONE10 M2 PO; +PROAIR HFA8.5 GM INH; +ZITHROMAX500 M2 PO
--- NOTE | 2016-05-23 14:22 | NUR ---
60 Y/O FEMALE BIBA FROM HOME FOR GENERALIZED WEAKNESS SINCE YESTERDAY. PT STS SHE IS DETOXING FROM VICONDINE, METHADONE AND XANAX. PER PT LAST SAT WAS THE LAST DOSE BUT SHE FOUND AN EXTRA DOSE OF VICODINE ON SUN AND HAS HAD NOTHING SINCE. PT STS SENT OVER SOME MEDICATION YESTERDAY WHICH SHE IS UNSURE OF TO ALSO TAKE IN A TAPERING DOSE. PT HAS HX OF COPD AND OXYGEN DEPENDENT NC 3L AND DM AND CHRONIC LOWER BACK AND HIP PAIN. PT STS SHE HAS DIFFICULTY GETTING OUT BED AND VERY WEAK. PAIN LEVEL AT PRESENT IS 7/10. [facility]
--- NOTE | 2016-05-23 15:16 | ED GENERAL ADULT ---
History of Present Illness General Chief Complaint: General Adult Stated Complaint: WEAKNESS ?W/D Source: patient, family (daughter), old records Exam Limitations: no limitations Vital Signs & Intake/Output Vital Signs & Intake/Output Vital Signs Date Time Temp Pulse Resp B/P Pulse O2 O2 Flow FiO2 Ox Delivery Rate 05/24 1019 65 112/59 05/23 2250 Nasal 3.0L Cannula 05/23 2211 98.1 65 18 112/59 100 Nasal 3.0L Cannula 05/23 2210 98.1 65 18 112/59 05/23 1819 97.7 71 18 129/60 100 Nasal 3.0L Cannula 05/23 1620 71 18 112/71 100 Nasal 3.0L Cannula 05/23 1428 99 Nasal 3.0L Cannula 05/23 1413 98.1 86 18 121/64 99 Nasal 3.0L Cannula ED Intake and Output 05/24 0000 05/23 1200 Intake Total Output Total Balance Patient 164 lb Weight Allergies Coded Allergies: caramiphen (UNKNOWN 10/16/15) chlorpheniramine (UNKNOWN 10/16/15) codeine (UNKNOWN 10/16/15) erythromycin base (UNKNOWN 10/16/15) phenylpropanolamine (UNKNOWN 10/16/15) streptomycin (RASH 10/16/15) Reconcile Medications Albuterol Sulfate (Proair Hfa) 90 MCG HFA.AER.AD 2 PUF INH BID COPD (Reported ) Alprazolam 1 MG TABLET 1 TAB PO TID ANXIETY (Reported) Aspirin (Ecotrin*) 81 MG TABLET.DR 1 TAB PO DAILY HEART/BLOOD (Reported) Clonidine HCl 0.1 MG TABLET 3 TAB PO BID WITHDRAW (Reported) Escitalopram Oxalate 10 MG TABLET 1 TAB PO DAILY MENTAL HEALTH (Reported) Gabapentin 300 MG CAPSULE 1 CAP PO TID WITHDRAWL (Reported) Insulin Aspart, Recombinant (Novolog Flexpen) 100 UNIT/ML INSULN.PEN DM ( Reported) Please take Blood sugar Insulin 80-150mg/dl no insulin 151-200mg/dl 5 units 201-250mg/dl 10 units 251-300mg/dl 15 units 301-350mg/dl 20 units 351-400mg/dl 25 units > 400mg/dl 30 units. please call Insulin Detemir (Levemir Flextouch) 100 UNIT/ML (3 ML) INSULN.PEN 80 UNITS SC BID DM (Reported) Levothyroxine Sodium (Synthroid) 25 MCG TABLET 1 TAB PO DAILY AC THYROID ( Reported) Linaclotide (Linzess) 290 MCG CAPSULE 1 CAP PO DAILY GI (Reported) Liraglutide (Victoza 3-Dung) 0.6 MG/0.1 ML (18 MG/3 ML) PEN.INJCTR 1.8 MG SC QAM DM (Reported) Methadone Hydrochloride (Methadone HCl) 10 MG TABLET 30 MG PO QAM CHRONIC PAIN (Reported) Methadone Hydrochloride (Methadone HCl) 10 MG TABLET 40 MG PO QPM CHRONIC PAIN (Reported) Multivitamin (Multi-Day Vitamins) 1 EACH TABLET 1 TAB PO DAILY SUPPLEMENT ( Reported) Oxycodone HCl 30 MG TABLET 1 TAB PO 4 TIMES/DAY PRN Severe pain 7-10 ( Reported) Rosuvastatin Calcium (Crestor) 10 MG TABLET 1 TAB PO DAILY CHOLESTEROL ( Reported) Sulfamethoxazole/Trimethoprim (Bactrim Ds Tablet) 1 EACH TABLET 1 TAB PO BID uti Please discuss with your urologist about continuation of this medication. Triage Note: 60 Y/O FEMALE BIBA FROM HOME FOR GENERALIZED WEAKNESS SINCE YESTERDAY. PT STS SHE IS DETOXING FROM VICONDINE, METHADONE AND XANAX. PER PT LAST SAT WAS THE LAST DOSE BUT SHE FOUND AN EXTRA DOSE OF VICODINE ON SUN AND HAS HAD NOTHING SINCE. PT STS SENT OVER SOME MEDICATION YESTERDAY WHICH SHE IS UNSURE OF TO ALSO TAKE IN A TAPERING DOSE. PT HAS HX OF COPD AND OXYGEN DEPENDENT NC 3L AND DM AND CHRONIC LOWER BACK AND HIP PAIN. PT STS SHE HAS DIFFICULTY GETTING OUT BED AND VERY WEAK. PAIN LEVEL AT PRESENT IS 7/10. [facility] PROVIDER EVAL Triage Nurses Notes Reviewed? yes Onset: Gradual Duration: day(s): (2), constant, changing over time, continues in ED, getting worse Timing: recent history Injury Environment: home Severity: moderate Severity Numbers: 6 No Modifying Factors: none Associated Symptoms: denies HPI: 60 year old female with history of diabetes, lung carcinoid tumor status post resection, COPD (3.5 L oxygen) presents brought in by ambulance with her daughter from home complaining of generalized weakness for the past 2 days. The patient was recently discharged from this hospital from a COPD exacerbation, upon following up with her primary care physician she was informed that he is no longer providing her with her oxycodone methadone and Xanax and that she needs to go to pain management. She states she has been withdrawing herself from these medications however her daughter states that she has been more weak than normal secondary to going through withdrawal. The patient denies any chest pain shortness of breath, fever chills nausea vomiting or diarrhea. She is on baseline oxygen at home for her COPD. The patient states her last dose of oxycodone was last night and is declining anything for pain when offered currently there is no recent fall or trauma (MICK MATOS) Past History Travel History Traveled to [place] past 21 day No Medical History Any Pertinent Medical History? see below for history Neurological: brain aneurysm EENT: NONE Cardiovascular: hyperlipidemia Respiratory: COPD, CARCINOID TUMOR sp partial right pneumectomy O2 3-4L Gastrointestinal: NONE Hepatic: NONE Renal: NONE Musculoskeletal: ruptured cervical disc Psychiatric: anxiety, depression Endocrine: diabetes Blood Disorders: NONE Cancer(s): NONE MARGIN ANALYST/Reproductive: NONE History of MRSA: No History of VRE: No History of CDIFF: No Influenza Vaccine: 01/06/15 Tetanus Vaccine: 05/23/14 Surgical History Surgical History: NECK SURGERIES X3 CRANIOTOMY X2 S/P CLIP STEEL & ACRYLIC PLATE IN SKULL PARTIAL R PNEUMONECTOMY Psychosocial History Who do you live with Family Services at Home Home Health Aide What is your primary language Ukrainian Tobacco Use: Current Daily Use Daily Tobacco Use Amount/Type: => 5 Cigarettes daily ETOH Use: denies use Illicit Drug Use: denies illicit drug use Family History Family History, If Any: FATHER (SMALL CELL CANCER LUNGS ). . Hx Contributory? No (MICK MATOS) Review of Systems Review of Systems Constitutional: Reports: see HPI. All Other Systems: Reviewed and Negative Comments Review of systems: See HPI, All other systems negative. Constitutional, no chills no fever, no malaise HEENT: No visual changes no sore throat no congestion, Cardiovascular: No chest pain , no palpitation , Skin, no rashes, no change in skin Respiratory: No dyspnea no cough no sputum GI: No nausea no vomiting, no diarrhea, : No dysuria Muscle skeletal: No joint pain, no back pain, no neck pain, Neurologic: No numbness no headache Psych: No stress Heme/endocrine: No bruising no bleeding Immunology: No lymphadenopathy (MICK MATOS) Physical Exam Physical Exam General Appearance: well developed/nourished, no apparent distress, alert, awake , comfortable Comments: Well-developed well-nourished person in no acute distress HEENT: Normal EENT exam; PERRL, EOMI,. HEAD is atraumatic. moist mucous membranes. Neck: Supple, no lymphadenopathy, normal range of motion Back: Nontender, no CVA tenderness. Full range of motion Cardiovascular: Regular rate and rhythms no murmurs rubs Respiratory: . No respiratory distress. Patient speaking in full complete sentences. Breath sounds clear to auscultation bilaterally: NO W/R/R Abdomen: Soft, nontender nondistended, no appreciable organomegaly. Normal bowel sounds. No rebound/guarding, . Extremity: No edema, full range of motion of extremities, Neuro: Alert oriented x3, motor sensory normal,There were no obvious focal neurologic abnormalities. Skin: No appreciable rash on exposed skin, skin is warm and dry. Psych: Mood and affect is normal, memory and judgment is normal. Core Measures ACS in differential dx? No CVA/TIA Diagnosis: No Severe Sepsis Present: No Septic Shock Present: No (MICK MATOS) Progress Differential Diagnoses I considered the following diagnoses in my evaluation of the patient: Dehydration electrolyte out of normality withdrawal from opiates, COPD exacerbation pneumonia Plan of Care: Orders Procedure Date/time Status Heart Healthy Diet 05/24 B Active PT Evaluate & Treat 05/24 0700 Active Gait Training, 15 Min 05/24 UNK Complete PT EVAL LOW COMPLEX 20 MIN 05/24 UNK Complete CASE MANAGEMENT CONSULT 05/23 220 Active EKG 05/[address] in observation 05/23 2056 Active Patient Data 05/23 2056 Active Vital Signs 05/23 2056 Active URINE DRUG SCREEN FOR ER ONLY 05/23 1454 Complete URINALYSIS 05/23 1454 Complete TROPONIN LEVEL 05/23 1454 Complete COMPREHENSIVE METABOLIC PANEL 05/23 1454 Complete CBC WITHOUT DIFFERENTIAL 05/23 1454 Complete FingerStick- Glucose 05/23 1430 Active Intake & Output 05/23 1423 Active Current Medications Sig/Franky Start time Last Medication Dose Stop Time Status Admin Atorvastatin Calcium 10 MG 1700 05/24 1700 AC (Lipitor) Laboratory Tests 05/23/16 1515: Anion Gap 10, Estimated GFR > 60, BUN/Creatinine Ratio 30.0 H, Glucose 371 H, Calcium 9.1, Total Bilirubin 0.8, AST 25, ALT 30, Alkaline Phosphatase 97, Troponin I < 0.01, Total Protein 6.9, Albumin 3.9, Globulin 3.0, Albumin/ Globulin Ratio 1.3, CBC w Diff NO MAN DIFF REQ, RBC 4.60, MCV 91.0, MCH 30.2, RDW 15.2 H, MPV 10.4, Gran % 70.4, Lymphocytes % 24.3, Monocytes % 4.7, Eosinophils % 0.3, Basophils % 0.3, Absolute Granulocytes 6.6 H, Absolute Lymphocytes 2.3, Absolute Monocytes 0.4, Absolute Eosinophils 0, Absolute Basophils 0, PUBS MCHC 33.2, Urine Opiates Screen 140.00, Methadone Screen 460 H, Barbiturate Screen < 60, Ur Phencyclidine Scrn < 6.00, Amphetamines Screen < 100, U Benzodiazepines Scrn < 85, Urine Cocaine Screen < 50, Urine Cannabis Screen < 5.00, Urine Color YEL, Urine Clarity CLEAR, Urine pH 6.0, Ur Specific Coy 1.015, Urine Protein NEG, Urine Ketones 40 H, Urine Nitrite NEG, Urine Bilirubin NEG, Urine Urobilinogen 0.2, Ur Leukocyte Esterase NEG, Ur Microscopic EXAM NOT REQUIRED, Urine Hemoglobin NEG, Urine Glucose >=1000 H Diagnostic Imaging: Viewed by Me: Radiology Read. Discussed w/RAD: Radiology Read. Radiology Impression: PATIENT: MERCEDEZ MONTANA PRESENT AGE: 60 PATIENT ACCOUNT NO: [id number] : 54 LOCATION: [facility] ORDERING PHYSICIAN: MICK BAPTISTE SERVICE DATE: 05/23/16 EXAM TYPE: RAD - XRY- PORTABLE CHEST XRAY EXAMINATION: XR PORTABLE CHEST CLINICAL INFORMATION: Cough and weakness. COMPARISON: 05/08/2016 TECHNIQUE: Portable AP view of the chest was obtained. FINDINGS: There is persistent elevation of the right hemidiaphragm with minimal streaky basilar opacity. This is unchanged. No pleural effusion or pneumothorax. The cardiomediastinal silhouette is unchanged. No acute osseous abnormality. IMPRESSION: Persistent elevation of the right hemidiaphragm with streaky basilar opacities likely postsurgical in nature. No acute pulmonary findings. DICTATED BY: DARLYN NUGENT,OPHELIA DATE/TIME DICTATED:05/23/161602 CAN REFORMING MACHINE OPERATOR:VIVIANE DATE/TIME TRANSCRIBED:05/23/16 / 1602 CONFIDENTIAL, DO NOT COPY WITHOUT APPROPRIATE AUTHORIZATION. <Electronically signed in Other Vendor System> SIGNED BY: OPHELIA SANTIZO MD 05/23/16 5850 Initial ED EKG: normal p-waves, normal QRS complex, normal sinus rhythm (80) Prior EKG: unchanged (MICK MATOS) Differential Diagnoses I considered the following diagnoses in my evaluation of the patient: Hand-Off Endorsed To: EDI BRYANT MD Endorsed Time: 0700 Pending: consult (EMELINA NUGENT,SHANTE Zamora) Differential Diagnoses I considered the following diagnoses in my evaluation of the patient: Comments: 05/24/16 7:00a pt signed out to me by dr he. 05/24/2016 8:21:34 AM patient has been evaluated by physical therapy and cleared for discharge. Patient should have a walker and outpatient physical therapy. Awaiting case management. 05/24/2016 12:33:59 PM patient has been evaluated by the case management and felt to be stable for discharge with her existing home health services. (EDI BRYANT MD) Departure Departure Time of Disposition: 2052 Condition: Stable Referrals: RASHEED DELGADILLO MD (PCP/Family) Departure Forms: Customer Survey General Discharge Information Observation Note Spoke With: EDI VALENTIN DO Physician Advisor Notified: EDI VALENTIN DO Place Patient In: ED Observation Rationale for Observation: My rational for observation is as follows patient will require PT consult in the a.m., trend labs and blood sugars, patient is unsafe with ambulation change from baseline premature discharge would BE medically harmful at this time (MICK MATOS) Observation Note Rationale for Observation: My rational for observation is as follows . (EDI VALENTIN DO) Departure Disposition: HOME OR SELF CARE Clinical Impression Primary Impression: Weakness Secondary Impressions: Gait instability, Hyperglycemia, Opiate withdrawal Additional Instructions: Follow-up with Dr. JONES next week for reevaluation of your generalized weakness, ability to ambulate and your diabetes. Strict diabetic diet. Follow through with physical therapy to increase strength and coordination. Return if any concerns or sudden worsening. Please note that there might be incidental findings in your evaluation that are unrelated to the current emergency department visit. Please notify your primary care doctor about this emergency department visit in order to obtain and review all of the testing performed so that these incidental findings can be monitored as needed. If you had an x-ray performed, please understand that some fractures may not be seen on the initial set of x-rays. If your symptoms persist you might need a repeat set of x-rays to check for such a fracture. If you had a laceration evaluated, please understand that foreign bodies such as glass or wood may not be visible to the naked eye or on plain x-rays. If the wound becomes red, swollen, increasingly more painful or if there is any drainage from the wound, please have it reevaluated by a physician for the possibility of a retained foreign body. Thank you for choosing the [facility] Emergency Department for your care. It was a pleasure to serve you today. Edi Bryant M.D. [facility] (PAUL NUGENT,EDI Gore) Critical Care Note Critical Care Note Critical Care Time: non-applicable (VINOD BAPTISTE,MICK) ED Attending Observation Initial Observation Note: I have seen and personally examined MERCEDEZ MONTANA on 05/23/16 at 2139. I agree with the current emergency department documentation. The disposition (admission or discharge) is uncertain at this time, she needs a period of observation for the following reason(s): [Medically] the patient needs to be placed in observation as she is unable to ambulate safely with a walker at this time. She's been vomiting from withdrawal of her pain medications and has a history of diabetes. She is therefore being observed for hyper and hypoglycemia , pain management, and for PT evaluation in the a.m. the patient was signed out to Dr. He at change of shift. The ED Nurse caring for this patient has been personally informed as to what the patient is being observed for. (EDI VALENTIN DO) Observation Re-Evaluation: I have reevaluated MERCEDEZ MONTANA on 05/24/16 at 0305. The physical findings that support the continued need to observe this patient include ... pt comfortable at this hour... merits pt eval/case management input for placement. (EMELINA NUGENT,SHANTE Zamora) Observation Discharge: I have reevaluated MERCEDEZ MONTANA on 05/24/16 at 1233. The patient is: ([X]): Stable for discharge (): To be admitted to Nursing Floor (): To be placed in Observation on Nursing Floor (): For transfer to other facility The patient was being observed for generalized weakness and fall risk As a result of that observation, I have determined this patient is stable for discharge to home with existing supportive services. (PAUL UNGENT,EDI Gore)
--- NOTE | 2016-05-23 15:19 | NUR ---
URINE AND LAB SENT AND EMILE BROCK AT BEDSIDE TO EVAL PT
[2016-05-23] MEDS ORDERED: GABAPENTIN300 M2 PO (15:32)
[2016-05-23] MEDS ORDERED: CLONIDINE HCL0.1 MG PO (15:33)
[2016-05-23 15:55] LABS: ABSOLUTE BASOPHIL COUNT 0 /CUMM (0.0-0.2); ABSOLUTE EOSINOPHIL COUNT 0 /CUMM (0.0-0.7); ABSOLUTE GRANULOCYTE CT 6.6 /CUMM (1.4-6.5); ABSOLUTE LYMPH COUNT 2.3 /CUMM (1.2-3.4); ABSOLUTE MONOCYTE COUNT 0.4 /CUMM (0.10-0.60); BASOPHIL % 0.3 % (0.0-2.0); EOSINOPHIL % 0.3 % (0-5); GRANULOCYTE % 70.4 % (42.2-75.2); HEMATOCRIT 41.8 % (37-47); MEAN CORPUSCULAR HGB 30.2 PG (27.0-31.0); MEAN CORPUSCULAR HGB CONC 33.2 G/DL (33.0-37.0); MEAN PLATELET VOLUME 10.4 FL (7.4-10.4); RBC DISTRIBUTION WIDTH 15.2 % (11.5-14.5); WHITE BLOOD CELL COUNT 9.4 /CUMM (4.8-10.8)
--- NOTE | 2016-05-23 16:08 | RADIOLOGY REPORT ---
EXAMINATION: XR PORTABLE CHEST CLINICAL INFORMATION: Cough and weakness. COMPARISON: 05/08/2016 TECHNIQUE: Portable AP view of the chest was obtained. FINDINGS: There is persistent elevation of the right hemidiaphragm with minimal streaky basilar opacity. This is unchanged. No pleural effusion or pneumothorax. The cardiomediastinal silhouette is unchanged. No acute osseous abnormality. IMPRESSION: Persistent elevation of the right hemidiaphragm with streaky basilar opacities likely postsurgical in nature. No acute pulmonary findings.
[2016-05-23 16:44] LABS: PLATELET COUNT 177 /CUMM (130-400)
--- NOTE | 2016-05-23 17:20 | NUR ---
PT GIVEN MEAL TRAY
--- NOTE | 2016-05-23 19:50 | NUR ---
PT SWITCHED TO HOSPITAL BED AND NOTED TO HAVE EATEN MORE FROM SECOND TRAY OFFERED SINCE SHE REFUSED FIRST TRAY BUT STILL NOT MUCH PROTIEN EATEN. PT FS TAKEN AND EMILE BROCK INFORMED OF FINDING
--- NOTE | 2016-05-23 22:11 | NUR ---
PT MEDICATED ORDERED
--- NOTE | 2016-05-24 01:00 | NUR ---
PATIENT SLEEPING ON HOSPITAL BED AT THIS TIME, NO ACUTE DISTRESS NOTED.
--- NOTE | 2016-05-24 03:28 | NUR ---
PATIENT ASSISTED TO USE BEDSIDE COMMODE AT THIS TIME, ALERT AND ORIENTED X 3. AMBULATES W/ SLOW STABLE GAIT NOTED. RETURNS TO RESTING COMFORTABLY ON HOSPITAL BED.
--- NOTE | 2016-05-24 07:43 | NUR ---
P/T IN ROOM TO EVAL.
--- NOTE | 2016-05-24 10:20 | NUR ---
MEDICATED ORDERED (SEE MAR)
--- NOTE | 2016-05-24 10:22 | NUR ---
PT AWAITING CASE MANAGEMENT EVAL.
--- NOTE | 2016-05-24 11:45 | NUR ---
Case Mgmnt TSF: Physical therapy is recommending home PT. I went in to speak with patient and daughter. Patient does have a rolling walker at home (recommeded also by PT) and already has [facility] set up for [facility]. I let them know that I would call [facility] to have them come out tomorrow to re-eval. Patient and daughter in agreement with this plan. CM Continuing to follow.
--- NOTE | 2016-05-24 11:56 | NUR ---
PT SITTING UP ON STRETCHER. PT PROVIDED WITH WATER PER REQUEST. CASE MANAGEMENT TO BEDSIDE AT THIS TIME.
--- NOTE | 2016-05-24 12:10 | NUR ---
Case Mgmnt TSF: I called [facility] and spoke with Abida. She confirmed that patient is indeed on service. I let her know I would fax over clinical. Abida said that they will go back out tomorrow to re-evaluate patient. CM continuing to follow.
--- NOTE | 2016-05-24 12:30 | NUR ---
Case Mgmnt TSF: I updated patient and daughter that [facility] would be out again tomorrow to see her. CM continuing to follow.
[2016-05-24 12:52] VITALS: BP 128/60
--- NOTE | 2016-05-24 12:53 | NUR ---
PT CLEARED FOR DISCHARGE. DISCHARGE INSTRUCTIONS AND FOLLOW UP REVIEWED WITH PT OFFERS NO COMPLAINTS AT THIS TIME. DISCHARGED VIA WHEELCHAIR.
== END 2016-05-24 13:05 ==
LOC: ERH 14:12 → ERHI 20:57
PROVIDERS: Physician Assistant Medical; ADMIT Emergency Medicine
DX: R53.1 Weakness (principal); R26.9 Unspecified abnormalities of gait and mobility; E11.9 Type 2 diabetes mellitus without complications; J44.9 Chronic obstructive pulmonary disease, unspecified; E78.5 Hyperlipidemia, unspecified; F41.9 Anxiety disorder, unspecified; F32.9 Major depressive disorder, single episode, unspecified; F17.200 Nicotine dependence, unspecified, uncomplicated
CPT/HCPCS: 6090; 80307; 81003; 93005; 93010; 96372; 97116-GP; 97161-GP; G0378; J1815; J3490